=== PATIENT | female | born 1990 | race African-American/Black ===

== ENCOUNTER 2019-02-19 20:16 | Emergency (ER) | payer SELFPAY ==
[2019-02-19] MEDS ORDERED: ACETAMINOPHEN EXTRA STRENGTH 500 MG TAB ONE ×2 (20:47→21:31)
== END 2019-02-19 22:25 | disposition home or self-care (01) ==
LOC: MED 20:16
DX: J10.1 Influenza due to other identified influenza virus with other respiratory manifestations (principal); M54.5 Low back pain; J45.909 Unspecified asthma, uncomplicated
CPT/HCPCS: 87804; 99283

== ENCOUNTER 2020-05-31 13:19 | Emergency (ER) | payer OTHER ==
[~2020-05-31] VITALS: Ht 175.3 cm; Wt 98.0 kg
[2020-05-31 13:21] VITALS: BP 135/75
--- NOTE | 2020-05-31 13:26 | NUR ---
BIB SELF C/O 6/10 NANCE, DIZZINESS X 1 WEEK.PMH: ASTHMA.
--- NOTE | 2020-05-31 14:12 | NUR ---
Patient being evaluated by QUINTEN KUMAR at TRIAGE ROOM.
[2020-05-31] MEDS: KETOROLAC 30 MG/ML VIAL IM ONE (14:39)
[2020-05-31] MEDS: METOCLOPRAMIDE 10 MG TAB PO ONE (14:39)
[2020-05-31] MEDS ORDERED: NAPR-54 PO (15:05)
[2020-05-31 15:22] VITALS: BP 135/75
== END 2020-05-31 15:22 | disposition home or self-care (01) ==
LOC: MED 13:19
DX: G43.909 Migraine, unspecified, not intractable, without status migrainosus (principal); M54.2 Cervicalgia; R42 Dizziness and giddiness; J45.909 Unspecified asthma, uncomplicated; Z79.899 Other long term (current) drug therapy
CPT/HCPCS: 81002; 81025; 96372; 99283; J1885; J8597; Q0163

== ENCOUNTER 2021-02-12 17:27 | Emergency (ER) | payer SELFPAY ==
[~2021-02-12] VITALS: Ht 182.9 cm; Wt 99.3 kg
[~2021-02-12 17:27] MED LIST: NAPR-54 PO
[2021-02-12 17:41] VITALS: BP 115/68
[2021-02-12] MEDS ORDERED: ALBUTEROL 0.083% 2.5 MG/3 ML NEBU INH ONE (17:50)
[2021-02-12] MEDS ORDERED: IPRATROPIUM 0.02% 0.5 MG/2.5 ML NEBU INH ONE (17:55)
[2021-02-12] MEDS ORDERED: predniSONE 20 MG TAB PO ONE (17:55)
--- NOTE | 2021-02-12 17:55 | NUR ---
RT AT BEDSIDE ADMINISTERING BREATHING TX
--- NOTE | 2021-02-12 17:56 | NUR ---
30 Y/O F BIB SELF FROM HOME, PT STATES SHE HAS BEEN HAVING ASTHMA ATTACKS FOR PAST 3 DAYS, WHEEZING, CP, SOB AND COUGH. RA 88%. LUNG SOUNDS WHEEZING. PMH: ASTHMA NKA MED: ALBUTEROL 2PUFFS NO RELIEF, NEBULIZER NO RELIEF.
[2021-02-12] MEDS ORDERED: predniSONE 20 MG TAB ONE (18:02)
--- NOTE | 2021-02-12 19:13 | NUR ---
Pt report given to BRANDIN JACOBS. Transfer of care at this time.
[2021-02-12] MEDS ORDERED: ALBU0.0912 IH (19:52)
[2021-02-12] MEDS ORDERED: PRED20TA5 PO (19:52)
[2021-02-12 19:59] VITALS: BP 140/81
--- NOTE | 2021-02-12 19:59 | NUR ---
Patient discharged with v/s stable. Written and verbal after care instructions given and explained. Patient verbalized understanding. Ambulatory with steady gait. All questions addressed prior to discharge. Advised to follow up with PMD.
== END 2021-02-12 19:58 | disposition home or self-care (01) ==
LOC: MED 17:27
DX: R06.02 Shortness of breath (principal); R07.89 Other chest pain; J45.909 Unspecified asthma, uncomplicated; Z79.899 Other long term (current) drug therapy
CPT/HCPCS: 94640; 99283; J7512; J7613; J7644

== ENCOUNTER 2021-12-07 17:32 | Emergency (ER) | payer MEDICAID ==
[~2021-12-07] VITALS: Ht 175.3 cm; Wt 101.6 kg
[~2021-12-07 17:32] MED LIST changes: +ALBU0.0912 IH; +PRED20TA5 PO
[2021-12-07 17:36] VITALS: BP 127/84
--- NOTE | 2021-12-07 18:00 | NUR ---
31 y/o female bib self, pt presents to ed with c/o cough and sob that started today. pt state she feels herself having wheezing with vomiting, body aches. pt states she has exposure to others around her with same s/s who have not tested for covid. a&ox4, ambulates with steady gait. lung sounds wheezing bl with inspiration and expiration. pmh: asthma nka med: inhaler
[2021-12-07] MEDS ORDERED: ALBUTEROL SULFATE/IPRATROPIU 3 ML SOL IH ONE (18:05)
[2021-12-07] MEDS ORDERED: PRED20TA5 PO (18:38)
[2021-12-07] MEDS ORDERED: ALBU0.0912 IH (18:38)
[2021-12-07] MEDS ORDERED: PROM118S5 PO (18:38)
--- NOTE | 2021-12-07 19:14 | NUR ---
Patient discharged with v/s stable. Written and verbal after care instructions given and explained. Patient alert, oriented and verbalized understanding of instructions. Ambulatory with steady gait. All questions addressed prior to discharge. ID band removed. Patient advised to follow up with PMD. Rx of albuterol, promethazine, prednisone (sent) given. Patient educated on indication of medication including possible reaction and side effects. Opportunity to ask questions provided and answered. work note given
--- NOTE | 2021-12-07 19:14 | NUR ---
sergo and influenza swabbed at this time
[2021-12-07 19:15] VITALS: BP 127/84
== END 2021-12-07 19:14 | disposition home or self-care (01) ==
LOC: MED 17:32
DX: J45.909 Unspecified asthma, uncomplicated (principal); Z20.822 Contact with and (suspected) exposure to COVID-19; B34.9 Viral infection, unspecified; R03.0 Elevated blood-pressure reading, without diagnosis of hypertension; Z79.899 Other long term (current) drug therapy
CPT/HCPCS: 94640; 99283

== ENCOUNTER 2022-04-26 15:34 | Emergency (ER) | payer SELFPAY ==
[~2022-04-26] VITALS: Ht 175.3 cm; Wt 102.1 kg
[~2022-04-26 15:34] MED LIST changes: +PROM118S5 PO
[2022-04-26 15:41] VITALS: BP 141/65
--- NOTE | 2022-04-26 15:48 | NUR ---
31/F WALKED IN C/O SOB AND COUGH X1 WK. PT REPORTS ASTHMA FLAREUPS. STATES TAKING ALBUTERAL PUFFS X9 WITHOUT RELIEF. AAO4 ,AMBULATORY, VITALS STABLE, ON ROOM AIR. NKA PMH: ASTHMA
[2022-04-26] MEDS ORDERED: LEVALBUTEROL 1.25 MG/0.5 ML NEBU INH ONE ×2 (16:05→16:54)
[2022-04-26] MEDS ORDERED: predniSONE 20 MG TAB PO ONE (16:05)
--- NOTE | 2022-04-26 16:09 | NUR ---
PT VOMITED ON FLOOR. PT C/O NEW ONSET NAUSEA.
[2022-04-26] MEDS ORDERED: methylPREDNISolone SS 125 MG/2 ML VIAL IVP ONE (16:15)
[2022-04-26] MEDS ORDERED: ONDANSETRON 4 MG/2 ML VIAL IVP ONE ×2 (16:15)
[2022-04-26] MEDS ORDERED: NACL 0.9% 1,000 ML IV ONE (16:15)
--- NOTE | 2022-04-26 16:26 | NUR ---
IV ESTABLISHED TO RIGHT HAND WITH 20G.
--- NOTE | 2022-04-26 16:58 | NUR ---
[facility] GIVEN; ORDERED 10mg; ONLY 7.25mg AVAILABLE IN [facility]; DR. OTIS ADAME AWARE AND APPROVED LESS DOSE
--- NOTE | 2022-04-26 17:00 | NUR ---
rt at bedside for br tx
[2022-04-26] MEDS ORDERED: ALBU0.0912 IH (17:56)
[2022-04-26] MEDS ORDERED: PRON INH (17:56)
[2022-04-26] MEDS ORDERED: PRED20TA6 PO (17:57)
[2022-04-26 18:10] VITALS: BP 132/79
== END 2022-04-26 18:10 | disposition home or self-care (01) ==
LOC: MED 15:34
DX: J45.901 Unspecified asthma with (acute) exacerbation (principal)
CPT/HCPCS: 94640; 94760; 96361; 96374; 99283; J2405; J7512; J7612; J2930; J7030

== ENCOUNTER 2022-11-24 20:36 | Emergency (ER) | payer SELFPAY ==
[~2022-11-24] VITALS: Ht 177.8 cm; Wt 98.4 kg
[~2022-11-24 20:36] MED LIST changes: +PRED20TA6 PO; +PRON INH
[2022-11-24 20:59] VITALS: BP 148/77; PULSE 101; RESP 22; TEMP 97.1; O2SAT 100
[2022-11-24] MEDS ORDERED: IPRATROPIUM 0.02% 0.5 MG/2.5 ML NEBU INH ONE (21:00)
[2022-11-24] MEDS ORDERED: ALBUTEROL 0.083% 2.5 MG/3 ML NEBU INH ONE (21:00)
[2022-11-24] MEDS ORDERED: predniSONE 20 MG TAB PO ONE (21:00)
[2022-11-24] MEDS ORDERED: guaiFENesin DM 200/20 MG-10 ML 10 ML UDC PO ONE (21:00)
[2022-11-24 21:14] VITALS: PULSE 95; RESP 16; O2SAT 96
[2022-11-24 21:40] VITALS: O2SAT 96
[2022-11-24 21:45] VITALS: O2SAT 96
[2022-11-24] MEDS ORDERED: guaiFENesin/CODEINE 100/10MG 5 ML UDC PO ONE (22:00)
[2022-11-24] MEDS ORDERED: ALBU0.0912 INH (22:21)
[2022-11-24] MEDS ORDERED: METH4TAB1 PO (22:21)
[2022-11-24] MEDS ORDERED: BENZ200C4 PO (22:21)
[2022-11-24] MEDS ORDERED: PRON INH (22:25)
== END 2022-11-24 22:30 | disposition home or self-care (01) ==
LOC: MED 20:36
DX: J45.901 Unspecified asthma with (acute) exacerbation (principal); Z79.899 Other long term (current) drug therapy
CPT/HCPCS: 71045; 81025; 94640; 99284; J7512; J7613; J7644

== ENCOUNTER 2023-03-21 23:57 | Emergency (ER) | payer SELFPAY ==
[~2023-03-21] VITALS: Ht 175.3 cm; Wt 98.4 kg
[~2023-03-21 23:57] MED LIST changes: +ALBU0.0912 INH; +BENZ200C4 PO; +METH4TAB1 PO
[2023-03-21 23:59] VITALS: BP 138/74; PULSE 112; RESP 20; TEMP 97.4; O2SAT 97
[2023-03-22] MEDS ORDERED: AMOX-1230 PO (00:40)
== END 2023-03-22 00:55 | disposition home or self-care (01) ==
LOC: MED 23:57
DX: J20.9 Acute bronchitis, unspecified (principal); J45.909 Unspecified asthma, uncomplicated; Z79.899 Other long term (current) drug therapy
CPT/HCPCS: 99281